=== PATIENT | female | born 1960 | race Caucasian/White ===

== ENCOUNTER → 2016-11-15 | Outpatient (CLI) | payer OTHER ==
--- NOTE | 2016-11-15 17:31 | CT ---
EXAMINATION TYPE: CT shoulder LT wo con DATE OF EXAM: 11/15/2016 5:20 PM COMPARISON: NONE HISTORY: Left shoulder pain post fall in October 2016. Known fracture CT DLP: 205.5 mGycm Automated exposure control for dose reduction was used. FINDINGS: There is a comminuted and slightly impacted fracture of the humeral neck. The scapula appears intact. Glenohumeral joint is anatomic. AC joint is intact. There is a comminuted 2 x 1 cm chip fracture of the greater tuberosity of the humerus. Fragments are up to 5 mm. IMPRESSION: COMMINUTED AND SLIGHTLY IMPACTED MINIMALLY DISPLACED HUMERAL NECK FRACTURE. FRACTURE ALSO INVOLVES TH E GREATER TUBEROSITY OF THE HUMERUS.
== END | disposition home or self-care (01) ==
LOC: RADCTMAIN 16:53
PROVIDERS: ATTEND Orthopaedic Surgery
DX: S42.252A Displaced fracture of greater tuberosity of left humerus, initial encounter for closed fracture (principal)

== ENCOUNTER → 2022-01-03 | Outpatient (CLI) | payer BC ==
--- NOTE | 2022-01-05 07:55 | MM ---
Reason for Exam: Screening (asymptomatic). Last mammogram was performed 1 year(s) and 9 month(s) ago. Patient History: Menarche at age 15. Postmenopausal. Risk Values: Vanessa 5 year model risk: 0.9%. NCI Lifetime model risk: 4.9%. Tissue Density: The breast tissue is heterogeneously dense. This may lower the sensitivity of mammography. Findings: Analyzed By CAD. No suspicious groups of microcalcifications, spiculated or lobular masses, architectural distortion or other secondary signs of malignancy are mammographically apparent. Overall Assessment: Benign, BI-RAD 2 Management: Screening Mammogram of both breasts in 1 year. A negative mammogram report should not preclude additional follow up of suspicious palpable abnormalities. Patient should continue monthly self breast exam. A clinical breast exam by your physician is recommended on an annual basis and results should be correlated with mammographic findings. Electronically signed and approved by: Jf Powers D.O. Radiologis
== END | disposition home or self-care (01) ==
LOC: RADMAMWWP 11:07
PROVIDERS: ATTEND Family Medicine
DX: Z12.31 Encounter for screening mammogram for malignant neoplasm of breast (principal); Z78.0 Asymptomatic menopausal state
CPT/HCPCS: 77063; 77067

== ENCOUNTER → 2023-08-16 | Outpatient (CLI) | payer BC ==
--- NOTE | 2023-08-16 10:47 | MR ---
EXAMINATION TYPE: MR brain wo con DATE OF EXAM: 08/16/2023 COMPARISON: NONE HISTORY: Headaches. TECHNIQUE: T1-weighted sagittal, T2, FLAIR, and diffusion axial, and T2 coronal coronal views of the brain are submitted. FINDINGS: There is no evidence of acute ischemia. The ventricles, basal cisterns, and sulci overlying the conv exities are consistent with the patient's age. There is no mass effect. Changes of chronic sinusitis. Orbits are symmetric. Craniocervical junction maintained. Sella turcica has a normal appearance. IMPRESSION: 1. No acute intracranial process 2. Chronic sinusitis.
== END | disposition home or self-care (01) ==
LOC: RADMRIMAIN 08:42
PROVIDERS: ATTEND Family Medicine
DX: G43.909 Migraine, unspecified, not intractable, without status migrainosus (principal); J32.9 Chronic sinusitis, unspecified
CPT/HCPCS: 70551